=== PATIENT | male | born 1960 | race American Indian/Alaskan Native ===

== ENCOUNTER 2017-12-26 07:21 | Day surgery (SDC) | payer OTHER ==
[~2017-12-26 07:21] MED LIST: ANCEF/STERILE WATER 2 GM/20 ML IV NR; LACTATED RINGERS 1,000 ML IV SCH; MARCAINE 0.25% INFILTRATI ONE; MARCAINE 0.5% INFILTRATI NR; SUBLIMAZE IV NR; VERSED IV NR
[2017-12-26] MEDS ORDERED: XYLOCAINE 1%/ EPI 1:100,000 INFILTRATI ONE (08:02)
[2017-12-26] MEDS ORDERED: ADRENALIN IV ONE ×2 (08:02→10:10)
[2017-12-26] MEDS ORDERED: MARCAINE 0.25% INFILTRATI ONE ×2 (08:03→11:15)
--- NOTE | 2017-12-26 08:04 | Anesthesia Day of Surgery ---
Anesthesia Day of Surgery - Day of Surgery Patient Examined: Yes Patient H&P Reviewed: Yes Patient is NPO: Yes
--- NOTE | 2017-12-26 08:04 | Anesthesia Consultation ---
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 details not known. Chest clear to auscultation. Sat on 97-99% on RA
[2017-12-26] MEDS ORDERED: DIPRIVAN 10 MG/ML IV ONE ×2 (08:07→09:31)
[2017-12-26] MEDS ORDERED: XYLOCAINE MPF 2% ONE ×2 (08:08→08:16)
[2017-12-26] MEDS ORDERED: PROVENTIL IH NR (08:15)
[2017-12-26] MEDS ORDERED: DILAUDID ONE ×3 (08:16→12:26)
[2017-12-26] MEDS ORDERED: XYLOCAINE 1% 20 mL ONE (08:17)
[2017-12-26] MEDS ORDERED: MARCAINE 0.5% 30 ML INFILTRATI ONE (08:17)
[2017-12-26] MEDS ORDERED: DECADRON ONE (08:18)
[2017-12-26] MEDS ORDERED: ZEMURON IV ONE (09:02)
[2017-12-26] MEDS ORDERED: NEO SYNEPHRINE/NS Syringe(OR USE) IV ONE ×2 (09:51→10:11)
[2017-12-26] MEDS ORDERED: NACL 0.9% IR ONE (10:10)
[2017-12-26] MEDS ORDERED: ePHEDrine SULFATE ONE (10:28)
[2017-12-26] MEDS ORDERED: ZOFRAN ONE (11:04)
[2017-12-26] MEDS ORDERED: LACTATED RINGERS 1,000 ML ONE (11:07)
[2017-12-26] MEDS ORDERED: ROBINUL ONE (11:07)
[2017-12-26] MEDS ORDERED: NEOSTIGMINE ONE (11:08)
--- NOTE | 2017-12-26 11:40 | Short Stay Summary ---
Short Stay Documentation - Allergies and Medications Current Medications: Allergies No Known Allergies Allergy (Verified 12/16/17 14:16) Home Medications Medication Instructions Recorded Confirmed Last Taken Type ALBUTEROL Inhaler [Proair] 2 puff IH QID PRN 12/16/17 12/16/17 Unknown History Aspirin [Lo-Dose Aspirin EC] 81 mg PO DAILY 12/16/17 12/16/17 Unknown History Diclofenac Sodium [Voltaren] 100 gm TP PRN PRN 12/16/17 12/16/17 Unknown History Fexofenadine HCl [Melida Allergy] 180 mg PO DAILY 12/16/17 12/16/17 Unknown History Mirtazapine [Remeron] 15 mg PO QHS 12/16/17 12/16/17 Unknown History Propranolol [Inderal] 40 mg PO BID 12/16/17 12/16/17 Unknown History Simvastatin [Zocor] 20 mg PO DAILY 12/16/17 12/16/17 Unknown History oxyCODONE /ACETAMINOPHEN [Percocet 1 tab PO Q6HR PRN 12/16/17 12/16/17 Unknown History 5/325] tiZANidine [Zanaflex] 4 mg PO QHS 12/16/17 12/16/17 Unknown History Active Medications Albuterol (Proventil) 2.5 mg IH PREOP NR Stop: 12/26/17 21:00 Last Admin: 12/26/17 08:44 Dose: 2.5 mg Bupivacaine HCl (Marcaine 0.5%) 20 ml INFILTRATI PREOP NR Stop: 12/26/17 21:00 Cefazolin Sodium (Ancef/Sterile Water 2 Gm/20 Ml) 2 gm IV PREOP NR Stop: 12/26/17 23:00 Fentanyl (Sublimaze) 100 mcg IV ONCE NR Stop: 12/26/17 21:00 Last Admin: 12/26/17 08:15 Dose: 50 mcg Lactated Ringer's (Lactated Ringers) 1,000 mls @ 100 mls/hr IV DIRECT ARLEN Last Admin: 12/26/17 08:10 Dose: 100 mls/hr Midazolam HCl (Versed) 2 mg IV PREOP NR Stop: 12/26/17 23:59 Last Admin: 12/26/17 08:15 Dose: 2 mg Short Stay Discharge Plan Activity: advance as tolerated, no driving until cleared by PCP (until clear by ortho) Weight Bearing Status: Non-Weight Bearing (on left UE) Diet: regular Wound: per your surgeon's advice Special Instructions: physical therapy, occupational therapy Additional Instructions: follow DC instruction sheet Rotator cuff repair protocol for PT Follow up with: GARY CHUNG MD [Staff Physician] - 14 Days
--- NOTE | 2017-12-26 12:14 | Operative Report ---
SURGEON: Santiago Johnson M.D. PHOTOGRAPHY TEACHER: Rancho Hanks, operative tech. PREOPERATIVE DIAGNOSES: 1. Full thickness rotator cuff tear, right anterior supraspinatus, minimally displaced. 2. Severe subacromial bursitis, bursal hypertrophy, impingement syndrome, right shoulder joint. 3. 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 4. Synovial hypertrophy perforation seen. PROCEDURES PERFORMED: 1. Right shoulder arthroscopy. 2. Arthroscopic subacromial decompression. 3. Arthroscopic distal clavicle excision. 4. Arthroscopic rotator cuff repair. 5. Arthroscopic debridement, extensive. 6. Subacromial decompression complex. BRIEF HISTORY: The patient had a painful left shoulder. Investigation revealed severe impingement syndrome with a rotator cuff tear and opted to go for surgical intervention. Risks, benefits discussed, informed consent obtained, brought to the hospital for the above procedure. DETAILS OF THE OPERATIVE REPORT: The patient was taken to the operating room. After smooth general anesthesia, all bony prominences were carefully padded, placed on the beach chair position. Left shoulder, left upper extremity prepped and draped in sterile fashion. He was given 2 grams Ancef half an hour before the procedure. Anatomical landmarks were drawn out. Portal sites were marked. Posterior portal was created. A spinal needle was inserted. Joint insufflated with 30 mL of normal saline. Posterior portal was then created. Diagnostic arthroscopy was performed. We noticed a tear of the anterior supraspinatus, marked intact with 0 PDS suture and under direct visualization, anterior portal and superior portal was created and soft tissue hypertrophy were seen on the undersurface of the rotator cuff, minimal fraying of the labrum was present and necessary debridement was performed. Mild signs of DJD of the shoulder joint was seen. Subscapularis was intact. Posterior rotator cuff was intact. Posterior supraspinatus and infraspinatus was intact. Biceps tendon was intact as well. Attention was drawn on the subacromial space. Arthroscope was then withdrawn. Fluid suctioned out and inserted into the subacromial space after the cuff tissue, which was torn was tacked. We then noticed in the subacromial space there was significant subacromial bursitis, significant thick hypertrophic tissue. A spinal needle was then placed on the lateral side and a lateral portal was created under direct visualization. Synovial resector was then used to perform necessary bursectomy and minimal release of the ligament of the anterior acromion was performed. A significant thick bursal hypertrophy was present and all debrided using shaver. Significant thickened bursa was there. An extensive debridement was performed. Once this was performed, there was a full thickness tear noticed on the anterior supraspinatus area, crescent-shaped tear, very minimally displaced. After performing necessary subacromial decompression, wand was used to clean the undersurface of the acromion with thick fibrous tissue. AC joint was exposed. Acromioplasty was performed using a barrel bur and distal clavicle excision was also performed, which was being prominent on the rotator cuff on the superior surface. Once this was done, the attention was drawn to the rotator cuff tear. The tacking stitch was removed. The rotator cuff torn tissue was inspected, there was crescent-shaped tear which was less than a centimeter from the insertion and the footprint was prepared with a shaver and soft tissues around the area was cleaned. New portal was created for better access to the rotator cuff tissue. Once new portal created, 8 mm cannula was inserted. We inserted a FiberTape in a horizontal mattress fashion through the crescent-shaped tear and got an assessment if we could put SpeedFix suture anchor. The mattress stitch we placed, we were able to get a full coverage of the head and excellent repair was seen. Arthrex SwiveLock anchor was used to do the repair. The sutures were passed through the knotless anchor and the anchor was inserted laterally covering the whole head and we had great coverage, excellent reconstruction, the whole cuff moved as a unit. The sutures tails were then cut. Shaver was used to clean the debris out after that. Excellent reconstruction. Necessary pictures were taken throughout the procedure. No active bleeders seen. The fluid suctioned out. Portal sites were then closed with 2-0/3-0 nylon interrupted sutures and portal sites injected with 0.25 mL plain Marcaine, 3 mL each portal. Dressing was done with Xeroform, 4 x 4, ABD and paper tape and abduction arm sling was applied. The patient tolerated procedure well, shifted to recovery room in stable condition. Sponge and needle count was correct. JOB# [id number] LY/VANDANA
[2017-12-26] MEDS ORDERED: DILAUDID IV PRN (12:25)
--- NOTE | 2017-12-26 13:08 | Post Anesthesia Evaluation ---
- Post Anesthesia Evaluation Patient Participated: Yes Airway Patent: Yes Stable Respiratory Function: Yes Nausea/Vomiting: No Temp > 96.8F: Yes Pain Manageable: Yes Adequeate Hydration: Yes Anesthesia Complications: No
[2017-12-26 13:29] VITALS: BP 141/93
== END 2017-12-26 14:30 | disposition home or self-care (01) ==
LOC: OR 07:21
PROVIDERS: ATTEND Orthopaedic Surgery
DX: M75.101 Unspecified rotator cuff tear or rupture of right shoulder, not specified as traumatic (principal); M75.41 Impingement syndrome of right shoulder; M19.011 Primary osteoarthritis, right shoulder; M75.51 Bursitis of right shoulder
CPT/HCPCS: 29823; 29824; 29826; 29827; 87116; A4217; C1713; J0171; J0690; J1100; J1170; J2250; J2370; J2405; J2704; J2710; J3010; J7120